=== PATIENT | male | born 1960 | race Caucasian/White ===

== ENCOUNTER 2018-06-29 21:46 | Inpatient (IN) | payer OTHER ==
[~2018-06-29] VITALS: Ht 170.2 cm; Wt 65.8 kg
--- NOTE | 2018-06-29 22:30 | NUR ---
Intake Assessment Patient is seen in the intake office. patient is noted to be anxious with depressed affect. Patient is noted to be unkept and unshaved. He is noted to be alert and oriented. He is seated in a wheelchair and is noted to be very fidgety. Speech is clear but delayed. He is able to make good eye contact. Patient is here for medically supervised withdrawal from ETOH. He denies any seizure withdrawal or any withdrawal induced delirium. Patient denies suicidal ideations. Patient was accompanied by his , daughter and best friend. Patients and daughter both speak Malay and request for financial sales manager during any communication. Patients best friend also stated "I feel like he is flight risk and will leave before he is expected to discharge." Explained to patient that administration would be made aware. All needs attended to promptly. Will continue with admission assessment on the unit.
[2018-06-29] MEDS ORDERED: LORAZEPAM 1 MG TABLET PO PRN (23:00)
[2018-06-29] MEDS ORDERED: THIAMINE HCL 200 MG/2 ML VIAL IM ONE (23:00)
[2018-06-29] MEDS ORDERED: ACETAMINOPHEN 325 MG TABLET PO PRN (23:00)
[2018-06-29] MEDS ORDERED: LORAZEPAM 2 MG/1 ML VIAL IM PRN (23:00)
[2018-06-29] MEDS ORDERED: DICYCLOMINE HCL 20 MG TABLET PO PRN (23:00)
[2018-06-29] MEDS ORDERED: MAG HYDROX/AL HYDROX/SIMETH 30 ML LIQUID UDC PO PRN (23:00)
[2018-06-29] MEDS ORDERED: MAGNESIUM HYDROXIDE 30 ML LIQUID UDC PO PRN (23:00)
[2018-06-29] MEDS ORDERED: MIRALAX 17 GM POWD.PACK PO PRN (23:00)
[2018-06-29] MEDS ORDERED: LOPERAMIDE HCL 2 MG CAPSULE PO PRN ×2 (23:00)
[2018-06-29] MEDS ORDERED: ONDANSETRON 4 MG/2 ML VIAL IM PRN (23:00)
[2018-06-29 23:07] LABS: BASOPHILS # (AUTO) 0.1 K/uL (0.0-8.0); BASOPHILS % (AUTO) 1.1 % (0.0-2.0); EOSINOPHILS % (AUTO) 0.1 % (0.0-7.0); HEMATOCRIT 42.5 % (36.7-47.1); HEMOGLOBIN 14.7 g/dL (12.5-16.3); LYMPHOCYTES # (AUTO) 1.1 K/uL (20.0-40.0); LYMPHOCYTES % (AUTO) 15.7 % (20.5-51.5); MEAN CORPUSCULAR HEMOGLOBIN 34.9 uug (23.8-33.4); MEAN CORPUSCULAR HGB CONC 35 g/dL (32.5-36.3); MEAN CORPUSCULAR VOLUME 100.8 fL (73.0-96.2); MONOCYTES # (AUTO) 0.6 K/uL (2.0-10.0); MONOCYTES % (AUTO) 8.9 % (0.0-11.0); NEUTROPHILS # (AUTO) 5.4 K/uL (1.8-8.9); NEUTROPHILS % (AUTO) 74.2 % (38.5-71.5); PLATELET COUNT (AUTO) 211 K/uL (152-348); RED BLOOD CELL COUNT(AUTO) 4.21 MIL/uL (4.06-5.63); WHITE BLOOD COUNT (AUTO) 7.3 K/uL (3.6-10.2)
[2018-06-29 23:22] LABS: *AMPHETAMINE, URINE NEGATIVE (NEGATIVE); *BARBITURATE, URINE NEGATIVE (NEGATIVE); *CANNABINOID, URINE NEGATIVE (NEGATIVE); *COCCAINE, URINE NEGATIVE (NEGATIVE); *OPIATE, URINE NEGATIVE (NEGATIVE); *PHENCYCLIDINE SCREEN,URINE NEGATIVE (NEGATIVE)
--- NOTE | 2018-06-29 23:30 | NUR ---
Admission Patient is a 57 year old male who is being admitted for medically supervised withdrawal from ETOH-[place]. The patient is noted to be intoxicated as evidence of patient noted with unsteady gait and noted with alcohol odor. Patient is also noted to be very fidgety in is wheelchair. Patient is noted to be unkept and unshaved. He has a flat and depressed affect. He is oriented x4, despite patients level of intoxication patient is able to make good eye contact, speech is clear but delayed. The patient states that withdrawal from alcohol typically includes "I get shaky and just uncomfortable. Since I started drinking I have not been sober." Patient states current use as: 1. ETOH-[place] drinking 750ml daily po for the past 3 years. Patients last drink was noted 06/29/18 1600 drinking approx 2-750ml bottles. Patient is able to explain " This all started 3 years ago when I was let go from [facility] [place]. I was only drinking socially 2-3 times per week, usually with a slice of pizza or burger. Then approximately 6 months after starting a new job my marriage started to go bad. That is when it became everyday. My father then past away and then I was drinking even more and now during the day. Recently I took a leave of absence from work 3 months ago and now I think I have lost my job." Patient states he is seeking treatment because his drinking cause caused him to lose his job, his family, and almost cause him to lose his house. He states "I want to fix things with my family, my friends, my job. I want to get things back together." This is patients first time in treatment. Patient explains since the first time he started drinking 3 years ago he has not maintained any sobriety. Patient states that he believes his triggers were stress. He states "I really think that It all started because my marriage was going bad, then I lost my job, then I lost my dad. It was a lot." Patient states he is motivated and ready for the help and states "its going to be a long road and I know I need al ot of help." Patient, his family, and patients best friend have helped the patient find a residential treatment for after his detox with [facility]. Patient is able to verbalize "I know with their support I can do it. I have to fix things." Vitals rendered upon arrival to unit and noted as 137/84, 118, 20, 98%, 98.8, 0/10. Respirations even and non labored. Lung sounds clear. Bowel sounds noted in all four quadrants with last bowel movement noted 06/29/18. Patient follows regular diet and explains "my diet has not been the greatest. When Im drinking I dont eat. I just dont have the appetite." He verbalizes No known allergies. Patient does not smoke and explains he stopped smoking 4 months ago. Patient does not have a primary care physician and states "I haven't been to the doctor in a while." Patients past medial history is noted as depression and he was diagnosed in his 20's. Patient was prescribed Zoloft 200mg daily but states "I've stopped taking it and started drinking instead. Its like I replaced the medication with the drinking." Educated patient about plan of care including detox, group therapy, individual therapy, and discharge planning. Encouraged patient to be open, honest, and present in his recovery. All information relayed to CN and MD with orders placed. Labs to be rendered, Urine drug screen provided. Admission CIWA noted to be 23. Patient presents with increased anxiety, restlessness, and agitation, increased tremors, flushed face, increased sweats, and verbalizing light sensitivity. Patient is placed on a 1:1 for unsteady gait. Will administer medication accordingly.
[2018-06-29 23:42] LABS: CREATININE 0.9 mg/dL (0.6-1.3); MAGNESIUM 1.8 mg/dL (1.8-2.4); POTASSIUM 4.1 mmol/L (3.5-5.1); TOTAL PROTEIN, SERUM 7.4 g/dL (6.4-8.2)
[2018-06-29 23:43] VITALS: BP 137/84
[2018-06-29 23:43] LABS: THYROID STIMULATING HORMONE 1.16 mIU/mL (0.358-3.740)
[2018-06-30] VITALS (7 sets, daily range): BP systolic 100–137; BP diastolic 63–86
[2018-06-30] MEDS: LORAZEPAM 1 MG TABLET PO PRN ×3 (00:04→08:41)
[2018-06-30] MEDS: diphenhydrAMINE 50 MG CAPSULE PO PRN ×2 (02:08→20:55)
--- NOTE | 2018-06-30 02:10 | NUR ---
PRN medication Administration Patient is noted awake verbalizing increased anxiety, tremulous, agitated, increased sweats and inability of falling asleep. PRN Ativan 2mg and Benadryl administered. Will continue to monitor.
--- NOTE | 2018-06-30 03:10 | NUR ---
PRN Medication Reassessment Patient is noted in bed with eyes closed. Breathing even and non labored. No signs of restlessness or discomfort noted. PRN Benadryl and Ativan 2mg noted to be effective. Will continue to monitor.
[2018-06-30] MEDS ORDERED: SERT50TA PO (06:20)
[2018-06-30] MEDS ORDERED: SERT100T PO (06:20)
--- NOTE | 2018-06-30 07:33 | NUR ---
End of Shift Patient is noted in bed with eyes closed. Breathing even and non labored. patient was admitted for medically supervised withdrawal from ETOH. Patient remains on 1:1 for unsteady gait. He is currently placed on PRN medications for increased signs and symptoms of withdrawal. Patient received PRN Ativan x2 and Benadryl with medications noted to be effective. Patient noted to sleep a total of 7 hours. Patients last noted CIWA 6. All needs attended to promptly. Will endorse to continue plan of care as ordered.
--- NOTE | 2018-06-30 07:34 | NUR ---
START OF SHIFT Pt 57 y/o male admitted for etoh withdrawal. Pt received in room on bed with eyes closed resting and with sitter 1:1 for safety. Alert and oriented to name, place, and time. Perrla. Skin warm and moist to touch. Bilateral arm tremors noted while pt is laying on bed with arms at his sides. Pressured speech noted. Poor eye contact, observed looking at the floor or wall during conversation. Appears disheveled and unkempt. Dirt under fingernails. Malodorous. Encouraged to maintain hygiene. It was reported that pt slept for 6 hours last night. Pt is on a prn ativan. Last ciwa=6@0400. Bed on lowest position with side rails x 2 up for safety. Call light within reach.
[2018-06-30] MEDS: MULTIVITAMINS,THERAPEUTIC TABLET PO SCH (08:41)
[2018-06-30] MEDS: THIAMINE HCL 100 MG TABLET PO SCH (08:41)
[2018-06-30] MEDS: FOLIC ACID 1 MG TABLET PO SCH (08:41)
--- NOTE | 2018-06-30 08:41 | NUR ---
[facility] resting tremors and becomes more gross with movement. Anxious and restless. Fidgety in bed. Irritable. Perspiration on face, and skin moist to touch. Bed sheets appears damp. Addendum: 06/30/18 at 1141 by JENNY MILLER RN incorrect title [facility]N [facility]
[2018-06-30] MEDS ORDERED: TUBERCULIN,PURIF.PROT.DERIV. 5 TU/0.1 ML TEST ID ONE (09:00)
--- NOTE | 2018-06-30 09:41 | NUR ---
PRN ATIVAN EVAL ciwa=13. Bilateral arm tremors. Stated anxious and irritability improved. Perspiration on face noted. Not able to lay still on bed. Unsteady gait.
[2018-06-30] MEDS ORDERED: 5 DAY TAPER VALIUM-SERENITY PROTOCOL PO PRN (10:30)
[2018-06-30] MEDS: ONDANSETRON ODT 4 MG TAB.RAPDIS SL PRN ×2 (11:36→23:40)
--- NOTE | 2018-06-30 11:37 | NUR ---
PRN ZOFRAN Complaints of nausea, with no vomit episode. Zofran odt prn per MD order given and tolerated well.
--- NOTE | 2018-06-30 12:00 | NUR ---
CIWA ASSESSMENT ciwa=13. Bilateral hand tremors when extended. More anxious/ worried. Irritability. Nausea noted. Skin warm and moist to touch. Stated, " I want this shaking to stop completely."
[2018-06-30] MEDS: DIAZEPAM 10 MG TABLET PO SCH ×3 (12:05→20:55)
--- NOTE | 2018-06-30 12:37 | NUR ---
PRN ZOFRAN EVAL Pt denies any nausea at this time.
--- NOTE | 2018-06-30 16:00 | NUR ---
CIWA ASSESSMENT ciwa=13. Bilateral hand tremors noted and visible at rest as well. Anxious and restless. Not able to sit still. Pressured speech noted. Irritable. Skin warm and moist to touch. Complaints of intermittent perspiration.
--- NOTE | 2018-06-30 18:52 | NUR ---
END OF SHIFT Pt 57 y/o male admitted for etoh withdrawal. Alert and oriented to name, place, and time. Perrla. Skin warm and moist to touch. Respirations even and unlabored. Bilateral arm tremors even when laying on bed resting. Appears disheveled with blankets and clothes scattered throughout the room. Encouraged to maintain hygiene. Anxious and restless throughout the day. Pressured speech. Intermittent perspirations. Nausea with no vomit today. Sitter 1:1 for safety. Low motivation for self care. No peer interaction and remained isolative to room today. Did not attend group activity. Was seen by MD today. Medication compliant. Last ciwa=13. Pt is on a 5 day valium taper and is on day 1. Received ativan 2mg po prn per MD order for ciwa=17, immodium 1st dose po prn per MD order for loose stool x1, and zofran odt prn per MD order for nausea today. Bed on lowest position with side rails x2 up for safety. Call light within reach.
--- NOTE | 2018-06-30 19:51 | NUR ---
START OF SHIFT NOTE Rcvd report from otugoing nurse. Pt is a 57 y/o male A/O to person, place, time, and purpose. Pt was admitted for medically supervised withdrawal from ETOH. Pt is currently on 1:1 observation for unsteady gait/fall precuation. Pt has been presenting w/ depressed mood, disheveled appearance, unkmept room, sweats, tremors, nausea, anxiety, restlessness, and flat affect. Pt denies any S/I and H/I. PRN Ativan, Immodium, and Zofran were given and noted effective. Last CIWA 13 @ 1600. Call light is within reach. Pt will continue to be monitored and needs met.
--- NOTE | 2018-06-30 20:00 | NUR ---
CIWA ASSESSMENT CIWA 15. Pt is presenting w/ anixety, restlessness, depressed and withdrawn mood, tremors, sweats, nausea, and flat affect. Pt's appearance and room are disheveled and unkempt. V/S: T:98.6, P:119, RR:18, SPO2:97, BP:137/77.
--- NOTE | 2018-06-30 20:55 | NUR ---
PRN BENADRYL ADMINISTRATION Benadryl 50mg given for sleep. Will reassess pt in 1 hr.
--- NOTE | 2018-06-30 21:55 | NUR ---
JOSE MENDEZ REASSESSMENT Pt has not fallen asleep yet. Pt states anxiety is preventing him from sleeping. Pt stated they will keep trying. Advised pt to turn off the TV or put on music at a low volume. Will continue to monitor pt.
--- NOTE | 2018-06-30 23:40 | NUR ---
PRN ZOFRAN ADMINISTRATION Zofran 4mg given for nausea w/o emesis. Will reassess pt in 1 hr.
--- NOTE | 2018-07-01 00:02 | NUR ---
CIWA DEFERRED Pt is in bed w/ his eyes closed. Pt's respirations are unlabored and even.
--- NOTE | 2018-07-01 04:01 | NUR ---
CIWA DEFERRED Pt is in bed w/ his eyes closed. Pt's respirations are unlabored and even.
--- NOTE | 2018-07-01 07:16 | NUR ---
END OF SHIFT NOTE Endorsed pt to oncoming nurse. Pt is a 57 y/o male A/O to person, place, time, and purpose. Pt was admitted for medically supervised withdrawal from ETOH. Pt has completed day1 of a 5 day Valium taper. Pt is currently on 1:1 observation for unsteady gait/fall precuation. Pt continues presenting w/ depressed mood, disheveled appearance, unkmept room, sweats, tremors, nausea, anxiety, restlessness, and flat affect. PRN Zofran 4mg given for nausea w/o emesis, noted effective. PRN Benadryl 50mg given for sleep, noted effective. Pt's fluid intake was 1300ml and he voided 5 times. Pt slept for 6hrs. Last CIWA 15 @ 2000. Call light is within reach.
--- NOTE | 2018-07-01 07:30 | NUR ---
START OF SHIFT Pt 57 y/o male admitted for etoh withdrawal. Received in room with eyes closed resting, but easily arousable to name. With sitter 1:1 for safety. Alert and oriented to name, place, and time. Perrla. Skin warm and moist to touch. Respirations even and unlabored. Bilateral arm tremors noted. Appears disheveled. Hair uncombed and not shaven. Food wrappings and empty drink bottles scattered throughout the room. Encouraged to maintain hygiene. Encouraged to shower and shave. It was reported that pt slept for 6 hours last night. Pt is on a 5 day valium taper and is on day 2. It was reported that pt received zofran prn per MD order for nausea last night. Bed on lowest position with side rails x2 up for safety. Call light within reach.
[2018-07-01 08:00] VITALS: BP 114/81
--- NOTE | 2018-07-01 08:00 | NUR ---
CIWA ASSESSMENT ciwa=13. Resting bilateral arms. Irritable and anxious. pressured speech noted. Frequent position changes. Complaints of intermittent perspiration.
[2018-07-01 08:06] LABS: HEPATITIS B SURFACE AG Negative (Negative)
[2018-07-01] MEDS: FOLIC ACID 1 MG TABLET PO SCH (08:16)
[2018-07-01] MEDS: MULTIVITAMINS,THERAPEUTIC TABLET PO SCH (08:16)
[2018-07-01] MEDS: DIAZEPAM 10 MG TABLET PO SCH ×3 (08:16→21:04)
[2018-07-01] MEDS: THIAMINE HCL 100 MG TABLET PO SCH (08:16)
[2018-07-01] MEDS: SERTRALINE HCL 50 MG TABLET PO SCH (08:16)
[2018-07-01 12:00] VITALS: BP 120/83
--- NOTE | 2018-07-01 12:00 | NUR ---
CIWA ASSESSMENT ciwa=13. Bilateral arm tremors while pt is laying on bed with arms at sides. Anxious. Irritable. Cannot sit/ lay still on bed. Pressured speech noted as well. Beads of perspiration on face. States, " I just feel anxious".
[2018-07-01 16:00] VITALS: BP 116/68
--- NOTE | 2018-07-01 16:00 | NUR ---
CIWA ASSESSMENT ciwa=13. Bilateral arm tremors even at resting. Pt anxious with pressured/ stuttered speech noted. Not able to lay / sit still. Easily irritable. Appears not comfortable when laying on bed. States has intermittent perspirations.
--- NOTE | 2018-07-01 18:47 | NUR ---
END OF SHIFT Pt 57 y/o male admitted for etoh withdrawal. Alert and oriented to name, place, and time. Perrla. Skin warm and moist to touch. Respirations even and unlabored. Bilateral hand tremors noted, even when resting. With sitter 1:1 for safety. Appears disheveled and unkempt. Anxious and restless throughout the day. Guarded on approach. Hair uncombed. Pressured speech. Sad affect. Fatigued this morning. At times with difficulty concentrating. Restless legs. Mostly isolative to room throughout the day. Did not attend group activity. Was seen by MD today. Pt medication compliant. Last ciwa=13. Pt is on a 5 day valium taper and is on day 2. Bed on lowest position with side rails x2 up for safety. Call light within reach.
--- NOTE | 2018-07-01 19:10 | NUR ---
START OF SHIFT Patient is a 57-year-old male, admitted on 06/29/18 for ETOH withdrawal. Patient is currently on a 5-day Valium taper, tolerating well; today is day 2 of taper. Patients last CIWA was 13, per endorsement. Patient received no PRN medications today. Upon assessment, patient is alert and oriented x4. Patient complains of anxiety and difficulty sleeping. Gross tremors noted bilaterally, patient is warm and diaphoretic, appears anxious and worried. Patient complains of neck soreness and stiffness stating, I usually take Aleve at home for this. Patient is on 1:1 for safety, related to unsteady gait. Patient denies seizure history. He is on fall and seizure precautions, safety measures in place, side rails up x2, bed locked in low position, call light within reach 1:1 at bedside. Will continue to monitor.
[2018-07-01] MEDS: IBUPROFEN 600 MG TABLET PO PRN (19:38)
--- NOTE | 2018-07-01 19:38 | NUR ---
PRN MOTRIN Patient reports neck soreness and stiffness, 6/10 on pain scale. Patient states, "I usually take Aleve at home." PRN Motrin given PO. Safety measures in place, side rails up x2, bed locked in low position, call light within reach, 1:1 at bedside. Will monitor for effectiveness.
[2018-07-01 20:00] VITALS: BP 113/80
--- NOTE | 2018-07-01 20:00 | NUR ---
CIWA 13 Patient has a CIWA score of 13, due to anxiety, restlessness, diaphoresis, and tremors. SN to administer medications as ordered. Will continue to monitor.
--- NOTE | 2018-07-01 20:38 | NUR ---
PRN MOTRIN REASSESSMENT Patient reports that neck soreness and stiffness has resolved. PRN Motrin noted to be effective. Safety measures in place, side rails up x2, bed locked in low position, call light within reach, 1:1 at bedside. Will continue to monitor.
[2018-07-01] MEDS: diphenhydrAMINE 50 MG CAPSULE PO PRN (21:04)
--- NOTE | 2018-07-01 21:04 | NUR ---
PRN BENADRYL Patient reports difficulty sleeping and insomnia related to withdrawal; requesting sleep aid. PRN Benadryl given PO. Safety measures in place, 1:1 at bedside. Will monitor for effectiveness.
--- NOTE | 2018-07-01 22:04 | NUR ---
PRN BENADRYL REASSESSMENT Patient continues to report difficulty sleeping. Patient states that Benadryl is not effective. PRN Benadryl noted to be ineffective at this time. Safety measures in place, 1:1 at bedside. Will continue to monitor.
[2018-07-02] VITALS: BP 126/83
--- NOTE | 2018-07-02 | NUR ---
CIWA 12 Patient has a CIWA score of 12; patient is anxious, restless, diaphoretic and tremulous. Safety measures in place, side rails up x2, bed locked in low position, call light within reach, 1:1 at bedside. Will continue to monitor.
[2018-07-02] MEDS ORDERED: TRAZODONE 50 MG TABLET PO ONE (01:30)
--- NOTE | 2018-07-02 01:33 | NUR ---
ONE TIME TRAZODONE Patient continues to report inability to sleep; one time order for Trazodone 50mg PO obtained. Trazodone given to patient PO. Safety measures in place, side rails up x2, bed locked in low position, call light within reach, 1:1 at bedside. Will monitor for effectiveness.
--- NOTE | 2018-07-02 02:33 | NUR ---
TRAZODONE REASSESSMENT Patient is observed in bed, eyes closed, respirations even and unlabored. PRN Trazodone effective at this time. Safety measures in place, 1:1 at bedside. Will continue to monitor.
[2018-07-02 04:00] VITALS: BP 88/58
--- NOTE | 2018-07-02 04:00 | NUR ---
CIWA 12 Patient is awake upon assessment and vitals; current CIWA is 12. Patient is anxious and restless, tremulous, and very diaphoretic at this time. Safety measures in place, 1:1 at bedside; will continue to monitor.
--- NOTE | 2018-07-02 07:20 | NUR ---
END OF SHIFT Patient is a 57-year-old male, admitted on 06/29/18 for ETOH withdrawal. Patient is currently on a 5-day Valium taper, tolerating well; today will be third day of taper. Patients last CIWA was 12. Patient received PRN Benadryl, which was not effective. Patient later received a one-time Trazodone 50mg PO, which was noted to be effective. Patient slept for 4hrs, total intake of 2,000mL, void x6, stool x0. Patient continues on 1:1 for safety, related to unsteady gait. Patient denies seizure history. He is on fall and seizure precautions, safety measures in place, side rails up x2, bed locked in low position, call light within reach 1:1 at bedside. Will endorse to day shift.
--- NOTE | 2018-07-02 07:30 | NUR ---
START OF SHIFT Pt 57 y/o male admitted for etoh withdrawal. Received in room on bed with eyes closed resting, but easily arousable to name. Alert and oriented to name, place, and time. Perrla. Skin warm and moist to touch. Respirations even and unlabored. Bilateral hand tremors noted. Appears disheveled and unkempt. Empty drink bottles and clothes scattered throughout the room. Anxious and restless. Generalized discomfort. Intermittent perspiration. I was reported that pt slept for 4 hours last night. Last ciwa=12 @ 0400. Pt is on a 5 day valium taper and is on day 3. It was reported that pt received benadryl po prn per MD order for insomnia, but was ineffective. Pt also received trazodone po prn per MD order for insomnia last night. Bed on lowest position with side rails x2 up for safety. Call light within reach.
[2018-07-02 07:41] LABS: CREATININE 0.8 mg/dL (0.6-1.3); POTASSIUM 4.5 mmol/L (3.5-5.1); TOTAL PROTEIN, SERUM 6.8 g/dL (6.4-8.2)
--- NOTE | 2018-07-02 07:54 | NUR ---
1:1 DC 1:1 sitter discontinued. Pt with steady gait observed.
[2018-07-02 08:00] VITALS: BP 111/65
--- NOTE | 2018-07-02 08:00 | NUR ---
CIWA ASSESSMENT ciwa=14. Bilateral hand tremors noted even at resting when arms are by side. Anxious and restless. Observed not able to sit or lay still. Pressured speech noted. Irritable. Generalized discomfort.
[2018-07-02] MEDS: DIAZEPAM 5 MG TABLET PO SCH ×4 (08:28→20:50)
[2018-07-02] MEDS: MULTIVITAMINS,THERAPEUTIC TABLET PO SCH (08:28)
[2018-07-02] MEDS: SERTRALINE HCL 50 MG TABLET PO SCH (08:28)
[2018-07-02] MEDS: THIAMINE HCL 100 MG TABLET PO SCH (08:28)
[2018-07-02] MEDS: FOLIC ACID 1 MG TABLET PO SCH (08:28)
[2018-07-02 08:49] LABS: BASOPHILS % (AUTO) 1.1 % (0.0-2.0); EOSINOPHILS # (AUTO) 0.1 K/uL (0.0-0.7); EOSINOPHILS % (AUTO) 1.6 % (0.0-7.0); HEMATOCRIT 38.7 % (36.7-47.1); HEMOGLOBIN 13.2 g/dL (12.5-16.3); LYMPHOCYTES # (AUTO) 1.2 K/uL (20.0-40.0); LYMPHOCYTES % (AUTO) 28.3 % (20.5-51.5); MEAN CORPUSCULAR HEMOGLOBIN 34.9 uug (23.8-33.4); MEAN CORPUSCULAR HGB CONC 34 g/dL (32.5-36.3); MONOCYTES # (AUTO) 0.5 K/uL (2.0-10.0); MONOCYTES % (AUTO) 11.3 % (0.0-11.0); NEUTROPHILS # (AUTO) 2.4 K/uL (1.8-8.9); NEUTROPHILS % (AUTO) 57.7 % (38.5-71.5); RED BLOOD CELL COUNT(AUTO) 3.79 MIL/uL (4.06-5.63); WHITE BLOOD COUNT (AUTO) 4.2 K/uL (3.6-10.2)
[2018-07-02 08:50] LABS: PLATELET COUNT (AUTO) 109 K/uL (152-348)
[2018-07-02] MEDS ORDERED: TRAZODONE 50 MG TABLET PO PRN (09:15)
[2018-07-02 12:00] VITALS: BP 126/79
--- NOTE | 2018-07-02 12:00 | NUR ---
CIWA ASSESSMENT ciwa=14. Bilateral arm tremors. Tremors noted at resting with arms by sides. Anxious and restless, not able to lay still. Irritable. Pressured speech noted. Intermittent perspiration.
[2018-07-02 16:00] VITALS: BP 103/69
--- NOTE | 2018-07-02 16:00 | NUR ---
CIWA ASSESSMENT ciwa=14. Bilateral arm tremors. Pt anxious and restless. Appears worried and preoccupied. Generalized discomfort. Irritable with pressured speech noted. Complaints of perspiration.
--- NOTE | 2018-07-02 18:47 | NUR ---
END OF SHIFT Pt 57 y/o male admitted for etoh withdrawal. Alert and oriented to name, place, and time. Perrla. Skin warm and moist to touch. Respirations even and unlabored. Bilateral hand tremors noted. Tremors even noted on resting with arms by pt's sides. Appears disheveled and unkempt. Hair uncombed. Malodorous. Periods of anxiety today. Appeared focused on how many days does have left before leaving. Stated," I just want to get out of here kristel". Unshaven. Restless, not able to sit lay still while in bed. Pressured speech noted. Some parts of bed sheet appears damp. Skin warm and moist to touch. Encouraged to maintain hygiene. Isolative to room today. Did not attend group activity. Was seen by MD today. Medication compliant. Last ciwa=14 @ 1600. On a 5 day valium taper and is on day 3. Bed on lowest position with side rails x2 up for safety. Call light within reach.
--- NOTE | 2018-07-02 19:15 | NUR ---
Start of Shift Note: Patient is a 57 y.o male admitted on 06/29/18 for medically supervised withdrawal from ETOH use. Patient is alert & oriented x4. He appears disheveled and unkempt. He presented with anxiety, agitation, restlnessness, & fine tremors. Skin is moist and warm to touch. He denies hallucinations at this time. Pt did not attend groups today. Continue to encourage pt to attend groups to learn coping skills to prevent relapse. He is on a a 5-day Valium taper and tolerating well. Last CIWA is 14. No PRN medications received during day time. Educated pt of current plan of care for the night and medication regimen and verbalized understanding. Continue to encourage pt to increase fluid intake. Safety measures in place. Bed locked in lowest position. call light within pt's reach. Will continue to monitor patient.
[2018-07-02 20:00] VITALS: BP 114/76
--- NOTE | 2018-07-02 20:50 | NUR ---
PRN Trazodone Patient complains of inability to fall asleep.PRN Trazodone administered as ordered. Will continue to monitor patient.
--- NOTE | 2018-07-02 21:00 | NUR ---
CIWA 11 Pt currently awake upon reassessment and presented with with anxiety, agitation, restlessness, & fine tremors. Skin is moist and warm to touch. He denies hallucinations at this time. No N/V/D noted. He remains alert & oriented x4. Safety measures in place. Will continue to monitor patient.
--- NOTE | 2018-07-02 21:50 | NUR ---
PRN Reassessment Patient still awake at this time. Per pt, he is trying to fall asleep at his time.Pt in bed and watching TV. Will continue to monitor patient.
[2018-07-03] VITALS: BP 123/81
--- NOTE | 2018-07-03 | NUR ---
CIWA 11 Pt currently awake upon reassessment and presented with with insomnia, anxiety, restlessness, & fine tremors. SHe remains alert & oriented x4. He appears anxious. CIWA 11 noted at this time. Safety measures in place. Will continue to monitor patient.
[2018-07-03] MEDS: diphenhydrAMINE 50 MG CAPSULE PO PRN (02:01)
--- NOTE | 2018-07-03 02:01 | NUR ---
PRN Benadryl Patient still can't sleep d/t pt kept thinking of his lost phone. PRN Benadryl administered as ordered. Will monitor for effectiveness of medication.
[2018-07-03 02:04] VITALS: BP 106/83
--- NOTE | 2018-07-03 03:01 | NUR ---
PRN Reassessment Patient in bed and appears drowsy. Per pt, he feels tired. Safety measures in place. Will continue to monitor patient.
--- NOTE | 2018-07-03 07:23 | NUR ---
End of Shift Note: Patient is a 57 y.o male admitted on 06/29/18 for medically supervised withdrawal from ETOH use. Patient remains alert & oriented x3. He continues on a 5-day Subutex and 5-day Valium and tolerating well. He presented with withdrawal symptoms such as sweating, anxiety, agitation, restlnessness, insomnia & fine tremors. . Last CIWA 11. He received PRN Benadryl & Trazodone for sleep yet slept late d/t anxiety because he kept thinking about his lost phone. Other than that, pt remained stable and vitals remained WNL. He only slept for a total of 2 hour. Fluid intake is 1000ml Voided 4x with no BM noted. Safety measures in place. Will dicuss all pertinent information to incoming nurse.
--- NOTE | 2018-07-03 07:45 | NUR ---
START OF SHIFT Endorse rcvd from ongoing nurse, client is in bed, he sounds asleep, easy to arouse, RR 16, even, non-labored. Client noted with flushed face, clammy and warms skin to touch. Client is on day 4th of 5 day Valium taper, last CIWA 11 @ 1999. PRN Benadryl 50mg PO and Trazodone 50mg PO for inability to sleep, client slept [address] in [address]. Bed in lowest/locked position. Side rails x 2 up/padded. Call light within reach.
[2018-07-03 07:59] LABS: BASOPHILS # (AUTO) 0.1 K/uL (0.0-8.0); BASOPHILS % (AUTO) 1.4 % (0.0-2.0); EOSINOPHILS # (AUTO) 0.1 K/uL (0.0-0.7); EOSINOPHILS % (AUTO) 1.9 % (0.0-7.0); HEMATOCRIT 36.5 % (36.7-47.1); HEMOGLOBIN 12.7 g/dL (12.5-16.3); LYMPHOCYTES % (AUTO) 22.7 % (20.5-51.5); MEAN CORPUSCULAR HEMOGLOBIN 35.6 uug (23.8-33.4); MEAN CORPUSCULAR HGB CONC 35 g/dL (32.5-36.3); MEAN CORPUSCULAR VOLUME 102.2 fL (73.0-96.2); MONOCYTES # (AUTO) 0.5 K/uL (2.0-10.0); MONOCYTES % (AUTO) 12.7 % (0.0-11.0); NEUTROPHILS # (AUTO) 2.6 K/uL (1.8-8.9); NEUTROPHILS % (AUTO) 61.3 % (38.5-71.5); PLATELET COUNT (AUTO) 102 K/uL (152-348); RED BLOOD CELL COUNT(AUTO) 3.57 MIL/uL (4.06-5.63); WHITE BLOOD COUNT (AUTO) 4.3 K/uL (3.6-10.2)
[2018-07-03 08:26] LABS: ALANINE AMINOTRANSFERASE 30 U/L (16-63); ALKALINE PHOSPHATASE 70 U/L (50-136); ASPARTATE AMINOTRANSFERASE 35 U/L (15-37); BILIRUBIN,TOTAL 0.7 mg/dL (0.2-1.0); CARBON DIOXIDE 30 mmol/L (21-32); CHLORIDE 106 mmol/L (98-107); CREATININE 0.6 mg/dL (0.6-1.3); GLUCOSE 90 mg/dL (74-106); POTASSIUM 4.1 mmol/L (3.5-5.1); TOTAL PROTEIN, SERUM 6.1 g/dL (6.4-8.2); UREA NITROGEN, BLOOD 10 mg/dL (7-18)
[2018-07-03] MEDS ORDERED: TRAZODONE 50 MG TABLET PO PRN (08:45)
[2018-07-03 08:51] VITALS: BP 98/64
[2018-07-03] MEDS: THIAMINE HCL 100 MG TABLET PO SCH (08:53)
[2018-07-03] MEDS: DIAZEPAM 5 MG TABLET PO SCH ×3 (08:53→20:50)
[2018-07-03] MEDS: FOLIC ACID 1 MG TABLET PO SCH (08:53)
[2018-07-03] MEDS: MULTIVITAMINS,THERAPEUTIC TABLET PO SCH (08:53)
--- NOTE | 2018-07-03 08:53 | NUR ---
CIWA 15 Client presents with anxious, irritable mood, flat affect, tremors, sweats, nauseous, stomach cramps, sweats, shaking, poor appetite, restless legs, fatigue, and difficulty concentrating. Valium 5mg for administered. Client stated, I want to leave preferably today or tomorrow, I have bills to pay and take care of my lost phone, and after that I will go into treatment." Educated client on risk of stopping taper medication, reinforcement needed. Encourage client to attend group therapy to learn skills to maintain sober. Call light within reach.
[2018-07-03] MEDS: SERTRALINE HCL 50 MG TABLET PO SCH (08:54)
--- NOTE | 2018-07-03 09:10 | NUR ---
Nursing note CN and discharge staff notified of client's desire to leave. Client stated, "I want to leave preferably today or tomorrow, I have bills to pay and take care of my lost phone, and after that I will go into treatment. Discharge staff will assist client with bills.
--- NOTE | 2018-07-03 09:20 | NUR ---
MD notification Dr Tam notified of client's desire to leave. MD will talk to him.
[2018-07-03 12:51] VITALS: BP 104/63
--- NOTE | 2018-07-03 12:53 | NUR ---
CIWA 12 Client presents with anxious, agitated mood, flat affect, tremors, sweats, nauseous, stomach cramps, shaking, poor appetite, restless legs, and fatigue. Supportive, non-pharmacologi therapy and close monitoring rendered. Call light within reach.
[2018-07-03] MEDS ORDERED: ASPIRIN/ACETAMINOPHEN/CAFFEINE TABLET PO PRN (15:15)
--- NOTE | 2018-07-03 15:19 | NUR ---
CIWA 19 Client presents with headache, anxious, irritable mood, flat affect, tremors, avoidant gaze, sweats, nausea, stomach cramps, poor appetite, restless legs, fatigue, and difficulty concentrating. Scheduled Valium 5mg and PRN Excedrin Extra Strength 1 tab for headache administered. Encourage client to increase PO fluid to facilitated detox and attend group therapy to identify barriers to maintain sober. Call light within reach.
--- NOTE | 2018-07-03 16:19 | NUR ---
Reassess PRN Excedrin Extra Strength, client reports some relief from headache, but tolerable. Call light within reach.
[2018-07-03 16:20] VITALS: BP 113/79
--- NOTE | 2018-07-03 19:03 | NUR ---
END OF SHIFT Endorse to incoming nurse, client is in bed, he is a/o x 4, client continues to present with tremors, clammy skin, difficulty concentrating, anxiety, abdominal spasms, restless legs, nausea, tremors, and fatigue. PRN administered and noted per protocol. Last CIWA 18 @ 1600. Adequate PO fluid intake 1825mL, void x 4, stool x 1. Consumes 75% of meals. Seizure precautions. Call light within reach.
--- NOTE | 2018-07-03 19:30 | NUR ---
START OF SHIFT Pt is 57 y/o male admitted on 06/29/18 for ETOH withdrawal. Pt will continue a 5 day Valium taper. Last CIWA 18. Upon rounds Pt is A&O x 4 and presents with anxiety, agitation, restlessness, headache, flushed skin, lethargic, tremors, poor eye contact, irritable, and is withdrawn. Medications due. Safety measures in place. Call light within reach. Will continue to monitor.
[2018-07-03 20:00] VITALS: BP 116/66
--- NOTE | 2018-07-03 20:00 | NUR ---
CIWA 12 Pt presents with tremors, flushed skin, anxiety, agitation, and mild headache. Safety measures in place. Call light within reach. Will continue to monitor.
[2018-07-03] MEDS: TRAZODONE 100 MG TABLET PO PRN (20:49)
--- NOTE | 2018-07-03 20:49 | NUR ---
PRN TRAZODONE ADMINISTRATION Pt stated having difficulty falling and staying asleep and requested a sleeping aid. Safety measures in place. Call light within reach. Will continue to monitor.
--- NOTE | 2018-07-03 21:49 | NUR ---
PRN TRAZODONE REASSESSMENT Pt found in bed with eyes closed. Pt's respirations are even and unlabored. Medication noted effective. Safety measures in place. Call light within reach. Will continue to monitor.
[2018-07-04] VITALS: BP 91/55
--- NOTE | 2018-07-04 | NUR ---
CIWA 6 Pt presents with tremors, flushed skin, mild anxiety, mild agitation, lethargic and difficulty falling and stay asleep. Safety measures in place. Call light within reach. Will continue to monitor.
[2018-07-04] MEDS: diphenhydrAMINE 50 MG CAPSULE PO PRN ×2 (00:16→22:12)
--- NOTE | 2018-07-04 00:16 | NUR ---
PRN BENADRYL ADMINISTRATION Pt having difficulty sleeping and staying asleep and requested a sleeping aid. Medication was given. Safety measures in place. Call light within reach. Will continue to monitor.
--- NOTE | 2018-07-04 01:16 | NUR ---
PRN BENADRYL REASSESSMENT Pt found in bed with eyes closed. Respirations even and unlabored. Medications noted effective. Safety measures in place. Call light within reach. Will continue to monitor.
--- NOTE | 2018-07-04 04:00 | NUR ---
CIWA DEFERRED AND V/S REFUSED Pt laying in bed with eyes closed, respirations even and unlabored. CIWA deferred. V/S refused. Safety measures in place. Call light within reach. Will continue to monitor.
--- NOTE | 2018-07-04 07:15 | NUR ---
END OF SHIFT Pt is 57 y/o male admitted on 06/29/18 for ETOH withdrawal. Pt will continue a 5 day Valium taper, tolerating well. Pt presented with anxiety, agitation, restlessness, flushed skin, lethargic, tremors, poor eye contact, irritable, and is withdrawn. Scheduled medications given and PRN Benadryl and Trazodone administered, effective in S/S of withdrawal as verbalized by Pt. Last CIWA 6. Pt slept 7 hours. Intake 1250 ml, void 3, stool 0. Safety measures in place. Call light within reach. Pt's needs have been met.
--- NOTE | 2018-07-04 07:27 | NUR ---
Start Of Shift Patient is a 57 yr old male who was admitted to [facility] on 06/29/18 for a medically supervised withdrawal from Alcohol ( [place]). He has been placed on a 5 day Valium taper and this is day 4. PRN medications given on PM shift : Trazodone for sleep and Benadryl, he slept for 6+ hours and last CIWA 6. He is asleep in bed at this time, breathing even and unlabored, side rails up x 2. Continue to follow MD plan of care and offer support as needed.
[2018-07-04 07:53] LABS: EOSINOPHILS # (AUTO) 0.1 K/uL (0.0-0.7); EOSINOPHILS % (AUTO) 2.1 % (0.0-7.0); HEMATOCRIT 36.1 % (36.7-47.1); HEMOGLOBIN 12.6 g/dL (12.5-16.3); LYMPHOCYTES # (AUTO) 1.1 K/uL (20.0-40.0); LYMPHOCYTES % (AUTO) 25.3 % (20.5-51.5); MEAN CORPUSCULAR HEMOGLOBIN 35.8 uug (23.8-33.4); MEAN CORPUSCULAR HGB CONC 35 g/dL (32.5-36.3); MEAN CORPUSCULAR VOLUME 102.4 fL (73.0-96.2); MONOCYTES # (AUTO) 0.7 K/uL (2.0-10.0); MONOCYTES % (AUTO) 15.1 % (0.0-11.0); NEUTROPHILS # (AUTO) 2.6 K/uL (1.8-8.9); NEUTROPHILS % (AUTO) 56.5 % (38.5-71.5); PLATELET COUNT (AUTO) 103 K/uL (152-348); RED BLOOD CELL COUNT(AUTO) 3.52 MIL/uL (4.06-5.63); WHITE BLOOD COUNT (AUTO) 4.5 K/uL (3.6-10.2)
[2018-07-04 08:00] VITALS: BP 97/61
--- NOTE | 2018-07-04 09:00 | NUR ---
BRADYWA 9 Patient presents with irritability, insomnia, restlessness, facial flushing and decreased appetite
[2018-07-04] MEDS: FOLIC ACID 1 MG TABLET PO SCH (09:22)
[2018-07-04] MEDS: SERTRALINE HCL 50 MG TABLET PO SCH (09:22)
[2018-07-04] MEDS: DIAZEPAM 5 MG TABLET PO SCH ×2 (09:22→20:12)
[2018-07-04] MEDS: MULTIVITAMINS,THERAPEUTIC TABLET PO SCH (09:22)
[2018-07-04] MEDS: THIAMINE HCL 100 MG TABLET PO SCH (09:22)
[2018-07-04 10:43] LABS: EOSINOPHILS % (MANUAL) 3 % (0-8); LYMPHOCYTES % (MANUAL) 27 % (20-40); METAMYELOCYTES % 2 % (0-1); MONOCYTES % (MANUAL) 15 % (2-10); NEUTROPHILS % (MANUAL) 53 % (42-75)
[2018-07-04 12:00] VITALS: BP 103/73
--- NOTE | 2018-07-04 12:00 | NUR ---
CIWA 9 Patient presents with extreme lethargy, decreased appetite, restlessness, diaphoresis, poor eye contact and flat affect. Will have Therapist Phong Provide 1:1 therapy today
[2018-07-04 16:00] VITALS: BP_SYST 134; BP_DIAS 107; BP_DIAS 96
--- NOTE | 2018-07-04 16:00 | NUR ---
CIWA 9 Patient presents with extreme lethargy, decreased appetite, restlessness, diaphoresis and flat affect. Therapist Phong Provide 1:1 therapy today.
--- NOTE | 2018-07-04 16:02 | NUR ---
Therapist spoke with client about his status as noted in an individual therapy session. Client was also prompted to attend group sessions while he is still here.
--- NOTE | 2018-07-04 17:14 | NUR ---
Communication Order for Vistaril 50 MG PO Q6H entered per Dr Bailey permission
[2018-07-04] MEDS: HYDROXYZINE PAMOATE 25 MG CAPSULE PO PRN (17:21)
--- NOTE | 2018-07-04 17:21 | NUR ---
PRN Vistaril Vistaril 50 MG PO given for reports of increased anxiety, HR 100
--- NOTE | 2018-07-04 18:21 | NUR ---
PRN Reassess Patient states he feels less anxious and Vistaril 50 MG PO was effective
--- NOTE | 2018-07-04 18:50 | NUR ---
End Of Shift: Patient is a 57 yr old male who was admitted to [facility] on 06/29/18 for a medically supervised withdrawal from Alcohol ( [place]). He has been placed on a 5 day Valium taper and this is day 5. Today he has isolated in his room, has not attended therapy or interacted with his peers, Phong the therapist provided a 1:1 session with patient in his room and will follow up with him tomorrow. PRN Vistaril 50 MG PO was given for anxiety. Patient has been very lethargic today, his appetite has been fair , he is restless and flushed and anxious at times. He had a fluid intake of 1800 ML,2 Voids and 1BM. Last CIWA was 9 @1600. Continue to follow MD plan of care. Endorsed to baby counselor.
--- NOTE | 2018-07-04 19:30 | NUR ---
Start of shift note Received report from day shift Nurse. Patient is a 57 year old male admitted for ETOH withdrawal . Patient is on 5th day of his 5 day Ativan taper. Patient was given PRN Vistaril for anxiety. Last CIWA 9. Patient in the room. Alert and oriented x 4. Respiration even and unlabored. Patient unshaven, flat affect, depressed mood, sad, worried, anxious , yawning, bilateral hand tremors and sweat palms. Safety measures in place. Call light in reach. Will continue to monitor.
[2018-07-04 20:00] VITALS: BP 112/74
--- NOTE | 2018-07-04 20:00 | NUR ---
CIWA assessment Patient worried, anxious , restless, angry, yawning, bilateral hand tremors and sweat palms. CIWA 9.
--- NOTE | 2018-07-04 22:12 | NUR ---
PRN Benadryl administration Patient requests for sleep aid. Will continue to monitor
[2018-07-05] VITALS: BP 112/74
--- NOTE | 2018-07-05 | NUR ---
CIWA deferred Patient lying in bed with eyes closed. Respiration even and unlabored. Will continue to monitor
[2018-07-05 04:00] VITALS: BP 101/70
--- NOTE | 2018-07-05 04:00 | NUR ---
CIWA deferred Patient lying in bed with eyes closed. Respiration even and unlabored. Will continue to monitor
--- NOTE | 2018-07-05 07:12 | NUR ---
End of shift note Patient slept 5 hours. Fluid intake 2,000 ml. Voided x 2 . No BM. Monitored patient throughout shift. Scheduled medication and taper given as ordered. Patient alert and oriented x 4. Respiration even and unlabored. Patient unshaven, flat affect, depressed mood, sad, worried, anxious , yawning, bilateral hand tremors and sweat palms. Patient was given PRN Benadryl for sleep. Safety measures in place. Call light in reach. Will continue to monitor. Last CIWA 9.
--- NOTE | 2018-07-05 07:30 | NUR ---
Start of Shift Notes: Received patient in his room. Awake, alert and verbally responsive. Oriented x 4. Appears irritated and agitated upon waking. He appears flushed with complains of intermittent perspiration. He complains of a 7/10 migraine requesting for Excedrin. He appears disheveled, unshaven and unkempt. Room is odorous and messy. Encouraged maintenance of personal hygiene and space. Patient is a 57 year old male admitted for ETOH withdrawal who was placed on a 5-day Valium taper as ordered. Patient completed his taper and is on close monitoring today. Educated patient on his current plan of care for the day and his medication regimen. Encouraged oral fluid intake and encouraged group participation to learn new skills to prevent relapse. Per night nurse, patient received Benadryl for sleep and slept for 5 hours. Last CIWA 9.
[2018-07-05 08:00] VITALS: BP 103/71
[2018-07-05] MEDS: THIAMINE HCL 100 MG TABLET PO SCH (08:26)
[2018-07-05] MEDS: FOLIC ACID 1 MG TABLET PO SCH (08:26)
[2018-07-05] MEDS: MULTIVITAMINS,THERAPEUTIC TABLET PO SCH (08:26)
[2018-07-05] MEDS: IBUPROFEN 600 MG TABLET PO PRN (08:26)
[2018-07-05] MEDS: SERTRALINE HCL 50 MG TABLET PO SCH (08:26)
--- NOTE | 2018-07-05 08:26 | NUR ---
CIWA Assessment/Tylenol 650 and Motrin 600 mg PO given: CIWA 13, patient presented with headache, anxiety, irritability, restlessness, complains of intermittent perspiration, gross tremors and facial flushing. Medicated patient with Tylenol 650 mg PO and Motrin 600 mg PO as ordered for headache. Support provided. Oral fluids encouraged. Will continue to monitor for effectiveness.
--- NOTE | 2018-07-05 09:26 | NUR ---
Re-assessment: Tylenol/Motrin Patient verbalizes mild relief from headache. He states that PRN Tylenol/Motrin was effective in reducing headache. He verbalizes that his headache went from 7 out of 10 to 3 out of 10.
[2018-07-05 12:00] VITALS: BP 110/64
--- NOTE | 2018-07-05 12:00 | NUR ---
CIWA Assessment: CIWA 11, patient continues to present with intermittent perspiration, agitation, irritability and anxiety. He is irritable due to lack of sleep from the night before obtaining only 5 hours of sleep. He denies S/I or H/I noted at this time. Offered PRNs. He states "I just need to sleep." He was unable to participate in AM group. Will continue to monitor.
[2018-07-05] MEDS ORDERED: HYDR-3895 PO (15:07)
[2018-07-05] MEDS ORDERED: TRAZ-214 PO (15:07)
--- NOTE | 2018-07-05 15:12 | NUR ---
Room Changed: Patient was moved from 302 to 327 per his request.
[2018-07-05 16:00] VITALS: BP 100/58
--- NOTE | 2018-07-05 16:20 | NUR ---
CIWA Assessment: CIWA 11, patient is observed with tremors, mild sweating, anxiety and agitation. He states he is anxious due to the discharge process. Education and reassurance provided. Will continue to monitor.
[2018-07-05] MEDS: HYDROXYZINE PAMOATE 25 MG CAPSULE PO PRN (17:14)
--- NOTE | 2018-07-05 17:14 | NUR ---
Vistaril 50 mg PO given: Patient noted with increased anxiety, he is noted to be tremulous and sweating. CIWA 10. Medicated patient with Vistaril 50 mg Po as ordered. Will monitor for effectiveness.
--- NOTE | 2018-07-05 18:14 | NUR ---
Re-assessment: Vistaril Patient verbalizes relief from anxiety. PRN Vistaril was effective in reducing anxiety.
--- NOTE | 2018-07-05 19:12 | NUR ---
End of Shift Notes: Patient completed his 5-day Valium taper successfully to manage his withdrawal symptoms related to ETOH. VS monitored closely. No significant abnormalities noted. Withdrawal symptoms were closely monitored. Initial CIWA 13, patient presented with gross tremors, anxiety, agitation, diaphoresis, generalized discomfort, headache, difficulty staying asleep, anxiety/agitation and facial flushing. Medicated patient with Tylenol 650 mg PO and Motrin 600 mg PO at 0826 with help after 1 hour. At 1714, patient was given Vistaril 50 mg PO for anxiety. Last CIWA 10. Patient verbalized that Valium was effective in managing his withdrawal symptoms. He was unable to participate in AM group due to feelings of fatigue, malaise and not being able to sleep well the night before. Rest was encouraged and discouraged caffeine intake after 1500. Safety precautions in place. Appetite good. All needs met and attended. Will continue to monitor closely.
--- NOTE | 2018-07-05 19:30 | NUR ---
Start of shift note Received report from day shift Nurse. Patient is a 57 year old male admitted for ETOH withdrawal. Patient completed Valium taper. Patient is medically cleared to be discharge tomorrow. Patient alert and oriented x 4. Respiration even and unlabored. Patient presents with anxiety, sweating , restless, emotional vitality, worried , sad , depressed mood and bilateral tremors. Safety measures in place. Call light in reach. Will continue to monitor.
[2018-07-05 20:00] VITALS: BP 117/68
--- NOTE | 2018-07-05 20:00 | NUR ---
CIWA assessment Patient presents with anxiety, sweating , restless, emotional vitality, worried , sad , depressed mood and bilateral tremors. CIWA 8.
[2018-07-05] MEDS: TRAZODONE 100 MG TABLET PO PRN (22:21)
--- NOTE | 2018-07-05 22:21 | NUR ---
PRN Desyrel administration Patient request for sleep aid. Will monitor for effectiveness
[2018-07-05] MEDS: diphenhydrAMINE 50 MG CAPSULE PO PRN (23:10)
--- NOTE | 2018-07-05 23:21 | NUR ---
PRN Benadryl administration/PRN Desyrel re-assessment Patient states Desyrel ineffective. PRN Benadryl given. Will monitor for effectiveness
[2018-07-06] VITALS: BP 100/72
--- NOTE | 2018-07-06 | NUR ---
CIWA deferred Patient lying in bed with eyes closed. Respiration even and unlabored. Will continue to monitor
[2018-07-06 04:00] VITALS: BP 111/66
--- NOTE | 2018-07-06 04:00 | NUR ---
CIWA deferred Patient lying in bed with eyes closed. Respiration even and unlabored. Will continue to monitor
--- NOTE | 2018-07-06 06:52 | NUR ---
End of shift note Monitored patient throughout shift. Patient was medically cleared to be discharge today. He completed Valium taper, tolerated well and no adverse reaction. Patient had difficulty sleeping. PRN Trazadone given, ineffective, PRN Benadryl given and effective. Patient was anxious and emotionally volatile during shift. Relaxation technique and positive encouragement given. Safety measures in place. Call light in reach. Will continue to monitor. Last CIWA 8.
--- NOTE | 2018-07-06 07:10 | NUR ---
Start Of Shift Report received from parking analyst nurse. Patient is a 57 year old male admitted for ETOH withdrawal. Pt has completed his 5 day Valium taper and tolerated well. Per parking analyst nurse pts last CIWA was a 8. Upon start of shift pt noted laying in bed watching TV. Upon greeting the pt he stated Im ready to go is it time yet? pt appears a bit anxious about the discharge but states he is ready. Pt is to be discharged today. During assessment pt is A&OX4 lung sounds clear bilaterally. Radial pulse regular abdomen soft an non-tender. Pts skin intact and warm. Pt denies any pain, encouraged pt to drink plenty of water to help with the detox process. Last night pt received PRN Benadryl and Trazodone for insomnia, medication effective per parking analyst nurse, pt slept a total of 8 hours. Bed in lowest position side rails upx2 call light within reach all needs met, will continue to monitor and provide support.
[2018-07-06 08:00] VITALS: BP 105/66
[2018-07-06] MEDS: MULTIVITAMINS,THERAPEUTIC TABLET PO SCH (09:30)
[2018-07-06] MEDS: FOLIC ACID 1 MG TABLET PO SCH (09:30)
[2018-07-06] MEDS: SERTRALINE HCL 50 MG TABLET PO SCH (09:30)
[2018-07-06] MEDS: THIAMINE HCL 100 MG TABLET PO SCH (09:30)
--- NOTE | 2018-07-06 10:00 | NUR ---
Discharge Note Pt is in stable condition, Vitals WNL, Pt is alert and oriented X4 skin intact, pt denies any suicidal or homicidal ideations. All discharge paperwork completed dated and signed. Pt educated about the discharge instructions what to do after discharge and when to contact primary MD as well as s/s to report to primary MD. pt verbalized understanding. Pts last CIWA was 3. Pt was discharged from [facility] on 07/06/18 0952. Pt left the building with all of his belongings prescriptions, pt did not bring any personal medications. MD has been notified of the discharge.
== END 2018-07-06 09:42 | disposition home or self-care (01) | DRG 895 ==
LOC: SRC 22:06
PROVIDERS: ADMIT Family Medicine Addiction Medicine; ATTEND Family Medicine Addiction Medicine
PROC: HZ2ZZZZ Detoxification Services for Substance Abuse Treatment (ICD-10-PCS; principal; 2018-06-29)
PROC: HZ31ZZZ Individual Counseling for Substance Abuse Treatment, Behavioral (ICD-10-PCS; 2018-07-02)
DX: F10.230 Alcohol dependence with withdrawal, uncomplicated (principal); Y90.8 Blood alcohol level of 240 mg/100 ml or more; D69.6 Thrombocytopenia, unspecified; Z79.899 Other long term (current) drug therapy; Z81.1 Family history of alcohol abuse and dependence; Z82.49 Family history of ischemic heart disease and other diseases of the circulatory system; Z87.891 Personal history of nicotine dependence; G43.909 Migraine, unspecified, not intractable, without status migrainosus; G47.00 Insomnia, unspecified; D75.89 Other specified diseases of blood and blood-forming organs
CPT/HCPCS: 36415; 80307; 82746; 83690; 83735; 84443; 85025; 85610; 85730; 86592; 86705; 86803; 87340; 87806; A9150; G0480; Q0162; Q0163